=== PATIENT | female | born 1975 | race Caucasian/White ===

== ENCOUNTER → 2017-09-02 09:57 | Outpatient (CLI) | payer OTHER, SELFPAY ==
--- NOTE | 2017-09-02 10:02 | ECHOD_ITS ---
Reason For Study: ARRHYTHMIA Procedure This was a 2D Doppler, Color Flow transthoracic echocardiogram. Exam performed in department. Left Ventricle Normal LV size. Left ventricular systolic function is normal. The estimated ejection fraction is 60 %. Normal diastology for age. No regional wall motion abnormalities noted. Right Ventricle Normal RV size. Normal systolic function. Atria Normal left atrium. Normal right atrium. Mitral Valve Normal mitral valve. Tricuspid Valve Normal tricuspid valve. Mild (1+) tricuspid valve insufficiency. Pulmonary artery systolic pressure is 30 mmHg. Aortic Valve Normal aortic valve. Pulmonic Valve Normal pulmonic valve. Great Vessels Normal aortic root. The pulmonary artery is normal size. Normal inferior vena cava. Pericardium/Pleural No pericardial effusion. MMode/2D Measurements & Calculations LVIDd: 4.5 cm IVSd: 0.79 cm Ao root diam: 2.6 cm LVIDs: 3.1 cm LVPWd: 0.96 cm LA dimension: 3.3 cm RVDd: 2.7 cm FS: 31.5 % LAV(MOD-bp): 41.8 ml LA A4 area: 15.9 cm2 RA A4 area: 14.2 cm2 LAV(MOD-bp) Indexed: 23.4 ml/m2 LAV(MOD-sp2): 32.4 ml LAV(MOD-sp4): 46.0 ml Doppler Measurements & Calculations MV E max sherwin: 114.1 cm/sec Lat Peak E' Sherwin: 10.9 cm/sec Med Peak E' Sherwin: 9.6 cm/sec MV A max sherwin: 72.9 cm/sec E/E' lat: 10.5 E/E' med: 12.0 MV E/A: 1.6 Ao V2 max: 157.1 cm/sec LV V1 max: 132.9 cm/sec PA V2 max: 105.2 cm/sec Ao max P.9 mmHg LV V1 max P.1 mmHg TR max sherwin: 247.4 cm/sec TR max P.6 mmHg Interpretation Summary Normal LV size. Left ventricular systolic function is normal. The estimated ejection fraction is 60 %. Normal tricuspid valve. Mild (1+) tricuspid valve insufficiency. Pulmonary artery systolic pressure is 30 mmHg. Ordering Physician: Ilia Thomas Referring Physician: Shayna Up M.D. Performed By: Marine Hays, [place], RVT
== END ==
PROVIDERS: Family Provider Internal Medicine; PCP Internal Medicine; Visit Provider Internal Medicine Cardiovascular Disease
DX: R00.2 Palpitations (principal)
CPT/HCPCS: 93306

== ENCOUNTER → 2017-10-19 17:45 | Outpatient (CLI) | payer OTHER, SELFPAY ==
[2017-10-24 17:35] LABS: HPV APTIMA, High Risk Negative (Negative)
== END ==
PROVIDERS: Visit Provider Obstetrics & Gynecology
DX: Z12.4 Encounter for screening for malignant neoplasm of cervix (principal)
CPT/HCPCS: 88175; G0145

== ENCOUNTER → 2017-11-17 08:45 | Outpatient (CLI) | payer OTHER, SELFPAY ==
--- NOTE | 2017-11-17 08:50 | BI_ITS ---
MAMMOGRAPHY - BILATERAL SCREENING REASON FOR EXAM: Female, 42 years old. Routine annual screening examination. PERTINENT HISTORY: Aunt with breast cancer. TECHNIQUE: Digital bilateral breast jaimie (3D mammographic acquisition) in the CC and MLO projections. 2-D mediolateral oblique (MLO) and craniocaudad (CC) views of both breasts were obtained. CAD: Full Field Digital Mammography with Computer Added Detection was performed. COMPARISON: Comparison is made with prior outside examination dated September 01, 2016. FINDINGS: Breast Composition: The breasts are extremely dense, which lowers the sensitivity of mammography. There are no dominant masses or suspicious calcifications. No other significant abnormalities are identified. There has been no significant change since the prior study. BI/SCREENING MAMM (CAD), BILAT IMPRESSION: Stable bilateral screening mammogram. Yearly follow-up mammogram recommended. (A) ASSESSMENT CATEGORY: BIRADS Category 1: Negative. A letter regarding these results will be sent to the patient by the facility within 30 days. Approximately 10% of breast cancers are not detected by mammography. A normal mammogram should not delay biopsy of a clinically suspicious abnormality. [id number] Electronically Signed: Suraj Gold MD at 12:38 EDT Tel [phone], Service support ,
== END ==
PROVIDERS: Family Provider Internal Medicine; PCP Internal Medicine; Visit Provider Obstetrics & Gynecology
DX: Z12.31 Encounter for screening mammogram for malignant neoplasm of breast (principal)
CPT/HCPCS: 77063; 77067

== ENCOUNTER → 2018-04-13 09:52 | Outpatient (CLI) | payer OTHER, SELFPAY ==
[2018-04-13 09:49] VITALS: BMI 21.4
--- NOTE | 2018-04-13 09:57 | RAD_ITS ---
STUDY: X-RAY - RIGHT KNEE REASON FOR EXAM: Knee pain. TECHNIQUE: 4 view(s) of the knee. COMPARISON: None. FINDINGS: Normal visualized distal femur. Normal visualized proximal tibia and fibula. Normal proximal tibiofibular articulation. Normal medial femorotibial compartment. Normal lateral femorotibial compartment. Normal patellofemoral articulation. The soft tissue structures are unremarkable. RAD/Knee 4 or More Views IMPRESSION: Normal x-ray examination of the right knee. Electronically Signed: Ash Allison MD at 16:03 EST Tel , Service support ,
--- OUTSIDE RECORDS SUMMARY | 2018-05-30 03:55 | XMS RPT_ITS ---
:1975 Author Organization OHIP Support Name Relationship Address Phone S Unavailable Unavailable Unavailable CHRISTINAHEMALDG Unavailable [address] + [place] [address] S Unavailable Unavailable Unavailable SPRHEMALDG Unavailable [address] + [place] [address] S Unavailable Unavailable Unavailable CHRISTINAHEMALDG Unavailable [address] + [place] [address] S Unavailable Unavailable Unavailable SPRHEMALAJEW Unavailable [address] + [place] [address] S Unavailable Unavailable Unavailable SPRHEMALDG Unavailable [address] + [place] [address] S Unavailable Unavailable Unavailable SPRDG RECIO Unavailable [address] + [place] [address] S Unavailable Unavailable Unavailable CHRISTINAHEMALDG Unavailable [address] + [place] [address] S Unavailable Unavailable Unavailable SPRAJ RECIOEW Unavailable [address] + [place] [address] S Unavailable Unavailable Unavailable STALINDG Unavailable [address] + [place] [address] S Unavailable Unavailable Unavailable SPRHEMALAJEW Unavailable [address] + [place] [address] [employer] Unavailable [address] + [place] [address] DG GANT Unavailable [address] + [place] [address] [employer] Unavailable [address] + [place] [address] DG GANT Unavailable [address] + [place] [address] S Unavailable Unavailable Unavailable DG GANT Unavailable [address] + [place] [address] Care Team Providers Name Role Phone Citlalli Knoxe Attending Unavailable Annel, Shayna Referring Unavailable Chicorelli, Swapna Attending Unavailable Chicorelli, Swapna Referring Unavailable Annel, Shayna Primary Care Unavailable Annel, Shayna Attending Unavailable Annel, Shayna Referring Unavailable Annel, Shayna Primary Care Unavailable Martha, Bradford Attending Unavailable Annel, Shayna Referring Unavailable Annel, Shayna Primary Care Unavailable Chicorelli, Swapna Attending Unavailable Chicorelli, Swapna Referring Unavailable Annel, Shayna Primary Care Unavailable Chicorelli, Swapna Attending Unavailable Annel, Shayna Referring Unavailable Martha, Ilia Attending Unavailable Martha, Ilia Referring Unavailable Annel, Shayna Primary Care Unavailable Martha, Bradford Attending Unavailable Martha, Ilia Attending Unavailable Martha, Bradford Referring Unavailable Marcanthony, Ninoska Attending Unavailable Annel, Shayna Referring Unavailable Annel, Shayna Primary Care Unavailable Marcanthony, Ninoska Attending Unavailable Marcanthony, Ninoska Referring Unavailable Marcanthony, Ninoska Attending Unavailable Annel, Shayna Primary Care Unavailable Bettina Masterson Attending Unavailable PROBLEMS PROBLEMS DATE TYPE CONDITION / CODE ATTENDING STATUS SOURCE 04/13/2018 Unknown M25.562 - Pain in Lisette, Active [place] left knee / [facility] M25.562(ICD-10) Hospital Repository 04/13/2018 Unknown S83.241A - Other Chicorelli, Active [facility] tear of medial [facility] meniscus, current Hospital injury, right knee, Repository initial encounter / S83.241A(ICD-10) 04/13/2018 Unknown S83.281A - Other Chicorelli, Active [place] tear of lateral [facility] meniscus, current Hospital injury, right knee, Repository initial encounter / S83.281A(ICD-10) 04/13/2018 Unknown S83.511A - Sprain of Ivoneorelli, Active [facility] anterior cruciate [facility] ligament of right Hospital knee, initial Repository encounter / S83.511A(ICD-10) 10/20/2017 Unknown Z12.4 - Encounter Marcanthony, Active [facility] for screening for [facility] malignant neoplasm Hospital of cervix / Repository Z12.4(ICD-10) 10/19/2017 Unknown Z12.31 - Encounter Blue Active [facility] for screening [facility] mammogram for Hospital malignant neoplasm Repository of breast / Z12.31(ICD-10) 10/19/2017 Unknown Z11.51 - Encounter Blue Active [facility] for screening for [facility] human papillomavirus Hospital (HPV) / Repository Z11.51(ICD-10) 08/17/2017 Unknown R00.2 - Palpitations Martha, Ilia Active [facility] / R00.2(ICD-10) [facility] Repository PROCEDURES PROCEDURES No Procedure Records FoundRESULTS RESULTS ORTHOPEDIC VISIT Observed: 05/05/2018 Status: F Source: [place] REPORT 10:25 AM [facility] [place] RE[place]IT[place] [facility] Medicine [address] [place] [address] OFFICE VISIT Date of Service: 05/04/18 MR#: [id number] Acct: [id number] Name: KALYN GANT Rep #: [id number] : 1975 Provider: Swapna Knox DO Age/Sex: 42/F [place] [facility] [place] [place]: Signed Intake Vital Signs05/04/18 Body Mass Index (BMI) 21.4 Intake Visit Reasons: RIGHT KNEE Is patient in pain?: Yes Pain scale (1-10): 2 Allergies Sulfa (Sulfonamide Antibiotics) Allergy (Severe, Verified 05/04/18 15:14) Hives, restlessness ampicillin Allergy (Intermediate, Verified 05/04/18 15:14) rash Medications NK 08/16/17 [History Confirmed 08/16/17] levonorgestrel 20 mcg/24 hr (5 years) intrauterine device 1 insert INTRAUTERINE ONCE PRN 10/19/17 [History Confirmed 10/19/17] PFSH Medical History History of gestational diabetes (Chronic) Tachycardia (Acute) Palpitations (Acute) History of paroxysmal supraventricular tachycardia (Chronic) Encounter for IUD insertion (Acute) d AND c 2000 (Acute) Surgical History History of knee surgery (Chronic) Family History Father Cancer of parotid gland Mother Hypertension Grandfather Diabetes Grandmother Alzheimer's dementia Social History Smoking Status: Never smoker HPI RIGHT KNEE: Details: KALYN GANT is a 42 year old F here today for a followup on her right knee. Patient states when she has pain it is over her medial knee and anterior knee. She states that she has increased pain with squatting. She has to modify her activities. Patient denies any locking. She had an MRI which is here for review. ROS Const Reports system reviewed and no additional complaints, except as docu Eyes Reports system reviewed and no additional complaints, except as docu ENT Reports system reviewed and no additional complaints, except as docu Card Reports system reviewed and no additional complaints, except as docu Resp Reports system reviewed and no additional complaints, except as docu GI Reports system reviewed and no additional complaints, except as docu Reports system reviewed and no additional complaints, except as docu Skin/Breast Reports system reviewed and no additional complaints, except as docu Neuro Yes system reviewed and no additional complaints, except as docu Psych Reports system reviewed and no additional complaints, except as docu Endo Reports system reviewed and no additional complaints, except as docu Ortho Exam Right Knee Contralateral Normal: Yes Knee ROM: Yes ROM-Extension -20 to 0, Yes ROM-Flexion 0-140, Yes ROM-Passive Extension -10 to 0, Yes ROM-Passive Flexion 0-140 Examination: Yes Med jt line tenderness, Yes Pain with flexion, Yes Jacqui's Test Stability: NML: Posterior Drawer, NML: Valgus 0, NML: Valgus 30, NML: Varus 0, NML: Varus 30, NML: Dial 90, NML: Dial 30, 1+: Anterior Drawer, 1+: Tatiana Apprehension with Lateral Translation: No Patellar Tilt Normal: Yes Patella Grind: No Assessment AND Plan Problems 1. Medial meniscus tear S83.249A 2. Lateral meniscus tear S83.289A Plan Personally reviewed MRI and reviewed MRI findings with patient. Patient has both a medial meniscus tear and a small lateral meniscus tear and ACL partial tear.. At this point patient has quite amount of atrophy of her right leg and discussed treatment options with patient today injections therapy bracing at [place]. Patient states she feels better should she did a course of physical therapy and was improved last time. Discussed going in and cleaning out the meniscus if it continues to bother her. She is not have any locking symptoms she has not had any injections does not wish to have one today. Discussed other options including bracing. At this point patient states she would prefer to do 6 weeks to 8 weeks of therapy to see if she maximizes that if she is not improved with the therapy she will come in for an injection if after the injection and the therapy she is not better than the next course would be to do a scope to clean out her knee. This was all discussed in great detail with patient. Patient agrees with the above will follow-up in 6-8 weeks if she is not better after therapy for an injection of her knee. All questions answered. Patient in agreement of plan. Coding Level of Care Code Off vis,est,level 4 Diagnoses Medial meniscus tear S83.249A Lateral meniscus tear S83.289A 05/05/18 1025 <Electronically signed by Swapna Knox DO> Date Swapna Knox DO Cosigner Signature: Date (if applicable) CC: LOWER EXT JOINT ONLY Observed: 04/27/2018 Status: F Source: [place] (ROUTINE) 7:30 AM [facility] [place] REPOSITORY [facility] Imaging Services [address] [place] [address] Lower Ext Joint Only (Routine) MR#: [id number] Acct: [id number] Name: KALYN GANT Rep #: [id number] : 1975 F 42 From: Ash Allison MD PCP: Shayna Up DO Status: REG CLI Study: Lower Ext Joint Only (Routine) Date of Exam: 04/27/18 Exam# [id number] Ordering Dr: Swapna Knox DO STUDY: MRI RIGHT KNEE REASON FOR EXAM: Medial knee pain, evaluate for meniscal tear, ACL rupture. TECHNIQUE: Standardized fat and water weighted pulse sequences were obtained in all 3 orthogonal planes. COMPARISON: Radiographs 04/13/2018. FINDINGS: There is a complex tear of the posterior horn of the medial meniscus (proton-density sagittal images 27-31; proton density coronal image 11). Normal hyaline cartilage of the medial femorotibial compartment. Normal medial femoral condyle and tibial plateau. There is thickening of the medial collateral ligament (proton-density coronal image 15) suggestive of scarring. Normal distal semimembranosus, gracilis and semitendinosus tendons. There may be a very small vertical tear of the posterior horn of the lateral meniscus near the free margin (proton-density sagittal image 13). Normal hyaline cartilage of the lateral femorotibial compartment. Normal lateral femoral condyle and tibial plateau. Normal proximal tibiofibular articulation. Normal lateral collateral (fibular) ligament. Normal popliteus tendon. Normal biceps femoris tendon. There is attenuation of the anterior cruciate ligament (T2 sagittal image 12; series 7 image 11) suggestive of chronic partial tear. Normal posterior cruciate ligament (PCL). Normal congruent patellofemoral articulation. Normal hyaline cartilage of the patellofemoral compartment. Normal medial and lateral patellar retinaculum. Normal visualized quadriceps tendon. Normal patellar tendon. Normal Hoffa's fat pad. There is a very small joint effusion. The soft tissues are unremarkable. The otherwise visualized osseous structures are unremarkable. MRI/Lower Ext Joint Only (Routine) IMPRESSION: Medial meniscal tear. Attenuation of the anterior cruciate ligament suggestive of chronic partial tear. There may be a very small lateral meniscal tear, identified only on a single slice. Scarring of the medial collateral ligament. Very small joint effusion. Electronically Signed: Ash Allison MD at 14:31 EST Tel , Service support , CC: Swapna Knox DO; Shayna Up DO Scientist/Engineer: Signed ORTHOPEDIC VISIT Observed: 04/13/2018 Status: F Source: [place] [facility] Medicine [address] [place] [address] OFFICE VISIT Date of Service: 04/13/18 MR#: [id number] Acct: [id number] Name: KALYN GANT Rep #: [id number] : 1975 Provider: Swapna Knox DO Age/Sex: 42/F [place] [facility] [place]: Signed Intake Vital Signs04/13/18 Height 5 ft 7 in 04/13/18 Weight: 137 lb 04/13/18 Body Mass Index (BMI) 21.4 Intake Visit Reasons: RIGHT KNEE Is patient in pain?: Yes Pain scale (1-10): 3 Allergies Sulfa (Sulfonamide Antibiotics) Allergy (Severe, Verified 04/13/18 09:47) Hives, restlessness ampicillin Allergy (Intermediate, Verified 04/13/18 09:47) rash Medications NK 08/16/17 [History Confirmed 08/16/17] levonorgestrel 20 mcg/24 hr (5 years) intrauterine device 1 insert INTRAUTERINE ONCE PRN 10/19/17 [History Confirmed 10/19/17] PFSH Medical History History of gestational diabetes (Chronic) Tachycardia (Acute) Palpitations (Acute) History of paroxysmal supraventricular tachycardia (Chronic) Encounter for IUD insertion (Acute) d AND c 2000 (Acute) Surgical History History of knee surgery (Chronic) Family History Father Cancer of parotid gland Mother Hypertension Grandfather Diabetes Grandmother Alzheimer's dementia Social History Smoking Status: Never smoker HPI RIGHT KNEE: Details: KALYN GATN is a 42 year old F here today for right knee pain. Patient notes that she has had knee pain for about 6 weeks. She states that she tore her meniscus and ACL about 3 years ago. Patient notes that she did not want surgery but did physical therapy which was helpful. She states that she has a knee brace that she wears with activities. She recently started doing fitness classes and believes she reinjured her knee then. She noticed swelling at that time. She has increased pain with ambulating stairs and squats. She has been icing which is helpful. Patient notes that she has popping and clicking. Her pain is over her medial knee and under her patella. Patient feels like she is favoring her knee. Patients knee hyperextends. She denies any locking or instability. Patient denies any injections, xrays or MRI. ROS Const Reports system reviewed and no additional complaints, except as docu Eyes Reports system reviewed and no additional complaints, except as docu ENT Reports system reviewed and no additional complaints, except as docu Card Reports system reviewed and no additional complaints, except as docu Resp Reports system reviewed and no additional complaints, except as docu GI Reports system reviewed and no additional complaints, except as docu Reports system reviewed and no additional complaints, except as docu Musc Reports joint pain, Reports joint swelling Skin/Breast Reports system reviewed and no additional complaints, except as docu Neuro Yes system reviewed and no additional complaints, except as docu Psych Reports system reviewed and no additional complaints, except as docu Endo Reports system reviewed and no additional complaints, except as docu Ortho Exam Right Knee Skin/Wound: Yes CDI Contralateral Normal: Yes Swelling: No Homans Sign: No Knee ROM: Yes ROM-Extension -20 to 0, Yes ROM-Flexion 0-140 Examination: Yes Pain with flexion, Yes Jacqui's Test, Yes Med jt line tenderness, Yes Lat jt line tenderness Quad Atrophy: Yes Stability: NML: Posterior Drawer, NML: Valgus 0, NML: Varus 0, NML: Dial 90, NML: Dial 30, 2+: Anterior Drawer (soft end feel) Apprehension with Lateral Translation: No Patellar Tilt Normal: Yes Patella Grind: Yes Assessment AND Plan 1. 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 X-rays were reviewed. There is no obvious fracture, dislocation, or lucency noted. Reviewed her past MRI with an ACL and med and lat meniscus tears. Educated on the anatomy of the knee and etiology of her pain. She has signs of instability and pos McMurrays on exam today. Explained that she has scarred in some since the injury because she has a soft end feel with drawer today. Her treatment options today are do nothing, PT, HEP and oral otc nsaids injections and repeat MRI. Gave PT script today and she can follow from MRI and discuss best option between injection or scope after MRI. She can do all desired activities and use pain as her guide. Follow up after MRI or sooner if pain, swelling, numbness or associated symptoms, or concerns develop. All questions answered. Patient in agreement of plan. Orders Orders: 2. Tear of medial meniscus of right knee, current, unspecified tear type, initial encounter S83.241A Orders Orders: 3. 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 Tear of medial meniscus of right knee, current, unspecified tear type, initial encounter S83.241A Encounter type: initial encounter Meniscus tear of knee type: unspecified type Tear current or old: current Tear of lateral meniscus of right knee, current, unspecified tear type, initial encounter S83.281A Encounter type: initial encounter Meniscus tear of knee type: unspecified type Tear current or old: current 04/13/18 1043 <Electronically signed by Swapna Knox DO> Date Swapna Knox DO Cosigner Signature: Date (if applicable) CC: KNEE 4 OR MORE Observed: 04/13/2018 Status: F Source: [place] 9:57 AM [facility] [place] REPOSITORY [facility] Imaging Services [address] [place] [address] Knee 4 or More Views MR#: [id number] Acct: [id number] Name: KALYN GANT Rep #: [id number] : 1975 F 42 From: Ash Allison MD PCP: Shayna Up DO Status: REG CLI Study: Knee 4 or More Views Date of Exam: 04/13/18 Exam# [id number] Ordering Dr: Swapna Knox DO STUDY: X-RAY - RIGHT KNEE REASON FOR EXAM: Knee pain. TECHNIQUE: 4 view(s) of the knee. COMPARISON: None. FINDINGS: Normal visualized distal femur. Normal visualized proximal tibia and fibula. Normal proximal tibiofibular articulation. Normal medial femorotibial compartment. Normal lateral femorotibial compartment. Normal patellofemoral articulation. The soft tissue structures are unremarkable. RAD/Knee 4 or More Views IMPRESSION: Normal x-ray examination of the right knee. Electronically Signed: Ash Allison MD at 16:03 EST Tel , Service support , CC: Swapna Knox DO; Shayna Up DO Scientist/Engineer: Signed SCREENING MAMM (CAD), Observed: 11/17/2017 Status: F Source: [facility] 8:51 AM [facility] [place] REPOSITORY [facility] Imaging Services [address] [place] [address] SCREENING MAMM (CAD), BIL MR#: [id number] Acct: [id number] Name: KALYN GANT Rep #: [id number] : 1975 F 42 From: Suraj Gold MD PCP: Shayna Up DO Status: REG CL Study: SCREENING MAMM (CAD), BILAT Date of Exam: 11/17/17 Exam# [id number] Ordering Dr: Ninoska Mcarthur MD MAMMOGRAPHY - BILATERAL SCREENING REASON FOR EXAM: Female, 42 years old. Routine annual screening examination. PERTINENT HISTORY: Aunt with breast cancer. TECHNIQUE: Digital bilateral breast jaimie (3D mammographic acquisition) in the CC and MLO projections. 2-D mediolateral oblique (MLO) and craniocaudad (CC) views of both breasts were obtained. CAD: Full Field Digital Mammography with Computer Added Detection was performed. COMPARISON: Comparison is made with prior outside examination dated September 01, 2016. FINDINGS: Breast Composition: The breasts are extremely dense, which lowers the sensitivity of mammography. There are no dominant masses or suspicious calcifications. No other significant abnormalities are identified. There has been no significant change since the prior study. BI/SCREENING MAMM (CAD), BILAT IMPRESSION: Stable bilateral screening mammogram. Yearly follow-up mammogram recommended. (A) ASSESSMENT CATEGORY: BIRADS Category 1: Negative. A letter regarding these results will be sent to the patient by the facility within 30 days. Approximately 10% of breast cancers are not detected by mammography. A normal mammogram should not delay biopsy of a clinically suspicious abnormality. 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 MACHINE TENDER OFFICE VISIT Observed: 10/25/2017 Status: F Source: [place] REPORT 7:23 AM [facility] [place] [place] [address] [place] [address] OFFICE VISIT Date of Service: 10/19/17 MR#: [id number] Acct: [id number] Name: KALYN GANT Rep #: [id number] : 1975 Provider: Ninoska Mcarthur MD Age/Sex: 42/F [place] [facility] [place] Signed Intake Vital Signs10/19/17 Height 5 ft 7 in 10/19/17 Weight: 153 lb 8 oz 10/19/17 Body Mass Index (BMI) 24.0 10/19/17 Blood Pressure 124/76 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 Is patient in pain?: No Allergies Sulfa (Sulfonamide Antibiotics) Allergy (Severe, Verified 10/19/17 14:47) Hives, restlessness ampicillin Allergy (Intermediate, Verified 10/19/17 14:47) rash Medications NK [NK] 08/16/17 [History Confirmed 08/16/17] levonorgestrel 20 mcg/24 hr (5 years) intrauterine device 1 insert INTRAUTERINE ONCE PRN 10/19/17 [History Confirmed 10/19/17] Is last menstrual period known: No PFSH Medical History History of gestational diabetes (Chronic) Tachycardia (Acute) Palpitations (Acute) History of paroxysmal supraventricular tachycardia (Chronic) d AND c 2000 (Acute) Surgical History History of knee surgery (Chronic) Family History Father Cancer of parotid gland Mother Hypertension Social History Smoking Status: Never smoker Pregancy History 4 Elective abortions Hx Para 3 Spontaneous abortions 1 Past Pregnancies Del. DateName GA/Weeks Outcome Route Bth WeighInfant GeLabor LgtAnesthesiDel LocatProvider FOB t n h a n HPI Encounter for routine gynecological examination: Details: KALYN GANT is a 42 year old who presents for annual exam. Last PAP: unsure History of abnormal PAP: none Last mammogram: due Female Reproductive History Cycle Length: >35 Control Method: mirena Questions: Sexually active: Yes, Dyspareunia: No, PCB: No Menopausal Symptoms: No hot flashes, No night sweats, No weight change, No mood changes, No difficulty concentrating, No sleep problems, No change in libido ROS Const Constitutional: Reports as per HPI; denies poor appetite, fatigue, increased appetite, weight gain, weight loss or night sweats Cardio Card: Denies chest pain Resp Resp: Denies dyspnea or cough GI GI: Reports as per HPI; denies bloating, abdominal pain, constipation, vomiting or nausea : Reports as per HPI and other; denies blood in urine, vaginal odor, vaginal itching, vaginal dryness, vaginal discharge, urinary urgency, urinary incontinence, urinary frequency, pelvic pain, painful urination, difficulty urinating, prolapse symptoms, nipple discharge or hot flashes Skin Skin/Breast: Denies breast pain, breast skin changes, nipple discharge, breast lump or changing lesions Psych Psych: Denies difficulty concentrating or change in sex drive Exam Const General: cooperative, healthy appearing, comfortable, no acute distress, well developed, well groomed [facility] Head: normal to inspection, normocephalic Ears: hearing grossly normal bilaterally, external ears normal Nose: external nose normal Face and sinus: normal facial exam Neck Neck: normal visual inspection, full ROM, no lymphadenopathy Thyroid: thyroid normal Chest Chest palpation AND inspection: normal inspection of the chest Breast inspection: normal inspection of the breasts, normal inspection of the axillae Breast palpation: normal palpation of the breasts, normal palpation of the axillae, no axillary lymphadenopathy Resp Effort AND Inspection: normal respiratory effort GI Inspection: normal to inspection, non-distended Palpation: no guarding, soft, no hepatosplenomegaly General: bladder normal to palpation External Female Exam: normal external appearance, normal appearance of the urethra, no lesions Urethra: normal appearance of the urethra, normal palpation Speculum Exam - Vagina: normal appearance of the vagina, normal vaginal discharge Speculum Exam - Cervix: normal appearance of the cervix, no cervical discharge, no lesions, nontender Bimanual Exam- Vagina AND Uterus: No cervical tenderness, normal bimanual exam, uterine size normal, bladder normal to palpation, uterine mobility normal, uterine consistency normal, uterus non-tender, no cervical motion tenderness Bimanual Exam- Adnexa, other: normal adnexae, no adnexal masses, adnexae non-tender Skin General: no rashes or lesions noted Neuro General: alert, moves all extremities, no focal motor deficits Extrem General: no pedal edema, normal to inspection Psych Appearance: grossly normal Mental Status: mental status grossly normal Affect: normal affect Speech and Movement: speech and movement normal Attitude: cooperative Assessment AND Plan Problems 1. Encounter for gynecological examination without abnormal finding Z01.419 2. Screening for cervical cancer Z12.4 3. Screening for HPV (human papillomavirus) Z11.51 4. Encounter for screening mammogram for malignant neoplasm of breast Z12.31 Plan Cervical cancer screening: pap hpv Breast cancer screening: mamm other health maintenance examination reviewed and up to date. Encouraged maintenance of a healthy weight and active lifestyle and handout given. Calcium/vitamin D recommendations provided. Annual exam handout including recommendations for good health guidelines and basic screening information given. Problem list up to date, see problem list details for any additional plan information. Follow up in one year for annual health maintenance exam or sooner if needed. Orders Orders: Coding Level of Care Code Off vis,new,prev 40-64yrs Diagnoses Encounter for gynecological examination without abnormal finding Z01.419 Gynecological examination findings: abnormal findings ABSENT Screening for cervical cancer Z12.4 Screening for HPV (human papillomavirus) Z11.51 Encounter for screening mammogram for malignant neoplasm of breast Z12.31 10/25/17 0723 <Electronically signed by Ninoska Mcarthur MD> Date Ninoska Mcarthur MD Cosigner Signature: Date (if applicable) CC: PAP IG HPV APTIMA Collected: 10/19/2017 Status: F Source: [place] ,45 2:20 PM [facility] [place] REPOSITORY Order Comment: CYTOLOGY INFORMATION: - CLINICAL INFORMATION: HYSTERECTOMY - DATE LMP/MENOPAUSE: LMP - COLLECTION VIAL: Thin Prep Vial - DECAL TRANSFERRER SOURCE: CERVICAL - COLLECTION TECHNIQUE: CX BROOM ONLY Specimen Comment: [id number] Specimen Comment: No. of containers..01 ThinPrep Vial TYPE CODE TESTS RESULT OUT OF RANGE REFERENCE UNITS LAB L7400.0800 . Normal DIAGN Comment Result Comment: NEGATIVE FOR INTRAEPITHELIAL LESION AND MALIGNANCY. CELLULAR CHANGES ASSOCIATED WITH INFLAMMATION ARE PRESENT. LAB L7400.0900 . Normal ADEQ Comment Result Comment: Satisfactory for evaluation. No endocervical cells are present. This is consistent with a history of hysterectomy. LAB L7400.1400 . Normal PERFORM Comment Result Comment: Margie Agee, [employer] (ASCP) LAB L7400.2575 . Normal TEST METHOD Comment Result Comment: This liquid based ThinPrep(R) pap test was screened with the use of an image guided system. LAB L7400.2600 . Normal . COMM LAB L7400.2700 . Normal PAPSMR Comment Result Comment: The Pap smear is a screening test designed to aid in the detection of premalignant and malignant conditions of the uterine cervix. It is not a diagnostic procedure and should not be used as the sole means of detecting cervical cancer. Both false-positive and false-negative reports do occur. LAB L7400.2760 Negative Normal HPV APTIMA, Negative HR Result Comment: This test detects fourteen high-risk HPV types (16/18/31/33/35/39/45/ 51/52/56/58/59/66/68) without differentiation. Performed at: [facility] - [facility] [id number] [employer] Fe[employer]: Wanda Navarrete MD, Phone: [phone] Performed at: =[facility] - [facility] [address] [id number] [employer]: Wanda Navarrete MD, Phone: [phone] Performed By: #### L7400.0280 #### [facility] (refer to report for specific site) refer to report for address and phone number ECHOCARDIOGRAM COMPLETE Observed: 09/02/2017 Status: F Source: [place] 1:36 PM [facility] [place] REPOSITORY [facility] Cardiovascular Services [address] [place] [address] Echo Complete 09/02/17 1002 MR#: [id number] Acct: [id number] Name: KALYN GANT Rep #: [id number] : 1975 42 From: Ilia Thomas MD Attending Dr: Ilia Thomas MD Status: REG CLI Ordering Dr: Ilia Thomas MD Date: 09/02/17 Location: [facility] Sex: F C Admitted: Reason For Study: ARRHYTHMIA Procedure This was a 2D Doppler, Color Flow transthoracic echocardiogram. Exam performed in department. Left Ventricle Normal LV size. Left ventricular systolic function is normal. The estimated ejection fraction is 60 %. Normal diastology for age. No regional wall motion abnormalities noted. Right Ventricle Normal RV size. Normal systolic function. Atria Normal left atrium. Normal right atrium. Mitral Valve Normal mitral valve. Tricuspid Valve Normal tricuspid valve. Mild (1+) tricuspid valve insufficiency. Pulmonary artery systolic pressure is 30 mmHg. Aortic Valve Normal aortic valve. Pulmonic Valve Normal pulmonic valve. Great Vessels Normal aortic root. The pulmonary artery is normal size. Normal inferior vena cava. Pericardium/Pleural No pericardial effusion. MMode/2D Measurements AND Calculations LVIDd: 4.5 cm IVSd: 0.79 cm Ao root diam: 2.6 cm LVIDs: 3.1 cm LVPWd: 0.96 cm LA dimension: 3.3 cm RVDd: 2.7 cm FS: 31.5 % LAV(MOD-bp): 41.8 ml LA A4 area: 15.9 cm2 RA A4 area: 14.2 cm2 LAV(MOD-bp) Indexed: 23.4 ml/m2 LAV(MOD-sp2): 32.4 ml LAV(MOD-sp4): 46.0 ml Doppler Measurements AND Calculations MV E max sherwin: 114.1 cm/sec Lat Peak E' Sherwin: 10.9 cm/sec Med Peak E' Sherwin: 9.6 cm/sec MV A max sherwin: 72.9 cm/sec E/E' lat: 10.5 E/E' med: 12.0 MV E/A: 1.6 Ao V2 max: 157.1 cm/sec LV V1 max: 132.9 cm/sec PA V2 max: 105.2 cm/sec Ao max P.9 mmHg LV V1 max P.1 mmHg TR max sherwin: 247.4 cm/sec TR max P.6 mmHg Interpretation Summary Normal LV size. Left ventricular systolic function is normal. The estimated ejection fraction is 60 %. Normal tricuspid valve. Mild (1+) tricuspid valve insufficiency. Pulmonary artery systolic pressure is 30 mmHg. Ordering Physician: Ilia Thomas Referring Physician: Shayna Up M.D. Performed By: Marine Hays, CLIFTON, RVT 09/02/17 1335 Date Ilia Thomas MD CC: Ilia Thomas MD; hSayna Up DO Date Dictated: 09/02/17 1002 Date Transcribed: 09/02/17 1335 Scientist/Engineer: Signed CARDIOLOGY VISIT Observed: 08/17/2017 Status: F Source: [place] REPORT 11:23 AM [facility] [place] REPOSITORY [facility] [address] [place] [address]. [address] [place] [address] OFFICE VISIT Date of Service: 08/17/17 MR#: [id number] Acct: [id number] Name: KALYN GANT Rep #: [id number] : 1975 Provider: Ilia Thmoas MD Age/Sex: 42/F Location: [facility] [place] Status: Signed HPI HPI Chief Complaint: Palpitations. Details: KALYN GANT, is a 42 F who presents to the office today for an initial visit for palpitations. She had previously been seen by me almost 10 years ago with palpitations. She had also been seen in 2006 for presumed supraventricular tachyarrhythmias which occurred during her Holter monitor performed did not demonstrate any evidence of arrhythmias and echocardiogram performed demonstrated preserved ejection fraction with trivial mitral aortic and tricuspid regurgitation. She also had a stress echocardiogram where she exercised to 11.7 metabolic equivalents without any evidence of ischemia. She also had a CT scan of her chest and November 2008 which did not demonstrate any abnormality repeat CT scan in 2009 also did not demonstrate any abnormality. She had done well since then had not been on any medication. She says that more recently she has started having these palpitations again which she says feels like her heartbeat super fast for a few seconds and then goes away. She has not had any chest pain or shortness breath or paroxysmal nocturnal dyspnea pedal edema she has not had any near syncope or syncope. She says that she has had some blood work performed through your office. Her physical exam demonstrates clear lung oreilly regular rate and rhythm and no pedal edema. Intake Vital Signs08/17/17 Height 5 ft 7 in 08/17/17 Weight: 149 lb 08/17/17 Body Mass Index (BMI) 23.3 08/17/17 Blood Pressure 122/80 Intake Visit Reasons: PCP ref'd (30 day monitor placed 3-28) Is patient in pain?: No Allergies Sulfa (Sulfonamide Antibiotics) Allergy (Severe, Verified 08/17/17 11:06) Hives, restlessness ampicillin Allergy (Intermediate, Verified 08/17/17 11:06) rash Medications NK [NK] 08/16/17 [History Confirmed 08/16/17] Ejection fraction %: 60 to 64 PFSH Medical History History of gestational diabetes (Chronic) Tachycardia (Acute) Palpitations (Acute) History of paroxysmal supraventricular tachycardia (Chronic) Surgical History History of knee surgery (Chronic) Family History Father Cancer of parotid gland Mother Hypertension Social History Smoking Status: Never smoker ROS Const Const: Positive for other (Wearing a 30 day event monitor for palps); negative for fatigue, weakness, body ache, fever(s), headache(s), chills, frequent falls, night sweats, daytime sleepiness, difficulty sleeping, excessive sweating, weight gain, weight loss, increased appetite, poor appetite or anorexia Eyes Eyes: Negative for blind spots, loss of peripheral vision, transient loss of vision, blurry vision, change in vision, double vision, floaters, tunnel vision or other ENT ENT: Negative for headache(s), dizziness, hearing loss, tinnitus, Nosebleed/epistaxis, balance problems, post nasal drip, lip swelling, tongue swelling, bleeding gums, hoarseness, neck pain, dry mouth or other Cardio Chest Pain: No Palpitations: Yes (had no palps since 2009 then started up again. ) feels like its: fast Edema: None Resp Respiratory: Negative for SOB with activity, SOB at rest, SOB orthopnea\SOB lying down, Coughing up blood/hemoptysis, chest congestion, pain on inspiration, snoring, stridor, wheezing, crackles, paroxysmal nocturnal dyspnea or other GI GI: Negative nausea, vomiting, heartburn, constipation, belching, bloating, cramping, vomiting blood/hematemesis, bright, red blood in stools, black,tarry stools, loose stools, Difficulty Swallowing or other : Negative for hematuria, frequent nighttime urination/ nocturia, erectile dysfunction or abnormal vaginal bleeding Musc Musc: Negative for balance problems, muscle aches/ myalgia, muscle weakness or joint pain Skin Skin: Negative redness, non-healing lesions, rash, unusual bruising, skin ulcer, wounds, jaundice or other Neuro Neuro: Negative for weakness, headache(s), frequent falls, blurry vision, double vision, dizziness, lightheadedness, near syncope, syncope, orthostatic symptoms, confusion, memory loss, restless legs, vertigo, seizures, lack of coordination or other Jai Hematologic/Lymphatic: Negative for easy bleeding, easy bruising, enlarged lymph nodes or other Endo Endo: Negative for fatigue, excessive sweating, cold intolerance, heat intolerance, flushing, increased thirst/drinking, increased hunger, hair loss, hair growth or other Psych Psych: Negative for anxiety, depression, thoughts of harming anyone, thoughts of harming yourself, visual hallucinations, panic attacks or audible hallucinations Allergy Allergy/Immunology: Negative for lip swelling, Negative for tongue swelling, Negative for rash, Negative for throat swelling, Negative for hives Cardiology Exam Const Appearance: cooperative, healthy appearing, well developed, well groomed and no acute distress Nutritional Appearance: well nourished and average body habitus Orientation: alert, awake and oriented x3 Head Head: normal to inspection, normocephalic and atraumatic Ears: hearing grossly normal bilaterally and external ears normal Nose: external nose normal, nasal mucous membranes and turbinates normal, nares normal, septum normal, no nasal discharge Face and Sinus: face symmetric Mouth: oral mucosae normal, tongue normal, oropharynx normal and moist mucous membranes Teeth and gingiva: dentition normal Throat: posterior oropharynx normal, tonsils normal and uvula midline Eyes General: appearance normal, both eyes and all related structures Eyelids: eyelids normal Conjunctivae: conjunctivae normal Pupils: PERRL, normal by confrontation and accommodation normal EOM: EOM intact bilaterally Neck Neck: normal visual inspection, trachea midline and no JVD JVD: +5 Carotids: normal carotid upstroke and bounding pulses Chest Chest inspection: normal inspection of the chest, symmetric chest movement and normal respiratory effort Auscultation: Bilateral: Clear to Auscultation Cardio Palpation: normal PMI Rate: regular rate Rhythm: regular rhythm Heart sounds: S1 normal, S2 normal and normal, physiologic split S2; negative rub, gallop or murmur GI GI: normal to inspection, soft, no hepatosplenomegaly and bowel sounds present Neuro General: alert, awake, oriented x3, no focal sensory deficit, gait normal and moves all extremities Skin Skin: no rashes or lesions noted Extremities Pulses: Normal: Right Femoral Pulse, Left Femoral Pulse, Right Dorsalis Pedis Pulse, Left Dorsalis Pedis Pulse, Right Posterior Tibial Pulse, Left Posterior Tibial Pulse, Right Radial Pulse, Left Radial Pulse Lower Extremity Edema: None: Bilateral Musculoskel Musculoskeletal: No joint tenderness Psych Psychological: normal affect Assessment AND Plan 1. Palpitations R00.2 Plan She does have a history of recurrent palpitations but says that she does not currently consume a significant amount of caffeinated beverages. She would prefer that we have an echocardiogram to assess her left ventricular function she currently has an event monitor in place and my recommendation is to continue the event monitor and I will be willing to continue it for another month to see whether we can characterize this further. Depending on the results further recommendations will be made. Thank you for allowing me to participate in her care. 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 on result) Coding Level of Care Code Off vis,new,level 3 Diagnoses Palpitations R00.2 Coding Level of Care Code Off vis,new,level 3 Diagnoses Palpitations R00.2 08/17/17 1123 <Electronically signed by Ilia Thomas MD> Date Ilia Thomas MD Cosigner Signature: Date (if applicable) CC: Shayna Up DO ALLERGIES ALLERGIES DATE TYPE / CODE NAME / CODE REACTION SEVERITY SOURCE 05/04/2018 Drug Sulfa Hives, restlessness [place] Allergy/416 (Sulf[facility]amide [facility] 759589[facility] Repository ED CT) /[id number]( RXNORM) 05/04/2018 Drug ampicillin/F Rash [place] [facility] Allergy/416 [id number](RX Hospital 438988(SN NORM) Repository ED CT) ENCOUNTERS ENCOUNTERS ADMIT/DISCHARGE ACCOUNT ADMITTING ENCOUNTER LOCATION SOURCE NUMBER CLASS 05/04/2018/ [id number] Ambulatory BMSBuilding:B [place] 9 1 [facility] Repository 04/27/2018 [id number] Ambulatory [place] 4 [facility] ing:MRI Repository 04/13/2018 [id number] Ambulatory [place] 3 [facility] ing:HPRAD Repository 04/13/2018/ [id number] Ambulatory BMSBuilding:B [place] 8 3 [facility] Repository 11/25/2017 [id number] Ambulatory BMSBuilding:B [place] 2 [facility] Repository 11/17/2017 [id number] Ambulatory [place] 7 [facility] ing:OPBI Repository 10/19/2017 [id number] Ambulatory [place] 3 [facility] ing:[facility] Repository 10/19/2017/ [id number] Ambulatory BMSBuilding:B [place] 8 2 [facility] Repository 09/02/2017 [id number] Ambulatory [place] 8 [facility] ing:[facility] Repository 09/02/2017 [id number] Ambulatory BMSBuilding:W [place] 4 [facility] Repository 08/17/2017/ [id number] [facility] [place] [facility] 07/27/2017 [id number] Ambulatory [place] 4 [facility] ing:[facility] Repository 07/27/2017 [id number] Ambulatory BMSBuilding:W [place] 1 [facility] Repository PAYERS PAYERS ENCOUNTER GUARANTOR PAYER SUBSCRIBER SOURCE 05/04/2018 KALYN R Primary DG [place] [id number] TR Insurance:[employer] HL[employer] SPRANGDOB: [address] [address]Czj: Number: Repository [id number] (HP) Date:5816-95-57KJ [address], [place] [address]LZ: 05/04/2018 Secondary NOT GIVENUNK [place] Insurance:SELF PAY [facility] Number: Effective Repository Date:2018-05-03 04/27/2018 KALYN R Primary DG [place] [id number] TR Insurance:[employer] HL[employer] SPRANGDOB: [address] [place] [address]Omf: Number: Repository [id number] (HP) Date:2277-58-52PG [address]HX, [place] [address]OK: 04/27/2018 Secondary NOT GIVENUNK [place] Insurance:SELF PAY [facility] Number: Effective Repository Date:2018-04-13 04/13/2018 KALYN R Primary Dg Stanley [id number] TR Insurance:[employer] HL[employer] SprangDOB: [address] [place] [address]Fsd: Number: Repository [id number] (HP) Date:3279-95-67AB [address]FTY[place], [place] [address]EZ: 04/13/2018 Secondary NOT GIVENUNK [place] Insurance:SELF PAY [facility] Number: Effective Repository Date:2018-04-13 04/13/2018 KALYN R Primary Dg Stanley [id number] TR [facility] SprangD[facility]: [place] [id number] [place], [place] [address] [place] [address]Vvt: Number: Repository [id number] (HP) Date:0205-20-50EW [facility] [address]WSZDQPT, [place] [address]YV: 04/13/2018 Secondary NOT GIVENUNK [place] Insurance:SELF PAY [facility] Number: Effective Repository Date:2018-04-12 11/25/2017 KALYN R Primary Dg W [place] [id number] TR Insurance:UNITED TH SprangDOB: [place] [id number] [place], [place] [address] [place] [address]Csz: Number: Repository [id number] (HP) Date:1839-20-24BG [facility]340864QDNGBPW, [place] [address]ZE: 11/25/2017 Secondary NOT GIVENUNK [place] Insurance:SELF PAY [facility] Number: Effective Repository Date:2017-11-25 11/17/2017 KALYN R Primary Dg W [place] [id number] TR Insurance:UNITED TH SprangDOB: [address] [address] [place], [place] [address] [place] [address]Izh: Number: Repository [id number] (HP) Date:9499-02-85EP [address]AVWSW[place], [place] [address]IX: 11/17/2017 Secondary NOT GIVENUNK [place] Insurance:SELF PAY [facility] Number: Effective Repository Date:2017-10-24 10/19/2017 KALYN R Primary Dg W [place] [id number] TR Insurance:[employer] SprangDOB: [place] [id number] [place], [place] [id number] [address]Hzq: Number: Repository [id number] (HP) Date:8687-94-76JW [facility] [id number] [place] [address]YX: 10/19/2017 Secondary NOT GIVENUNK [place] Insurance:SELF PAY [facility] Number: Effective Repository Date:2017-10-19 10/19/2017 KALYN R Primary Dg Veliz [place] [id number] TR [facility] SprangDOB: [address] [address]Exn: Number: Repository [id number] (HP) Date:2175-85-50HC [facility] [id number] [place] [address]BR: 10/19/2017 Secondary NOT GIVENUNK [place] Insurance:SELF PAY [facility] Number: Effective Repository Date:2017-10-19 09/02/2017 KALYN R Primary Dg Sureshoster [id number] TR Insurance:[employer] SprangDOB: [place] [id number] [place], [place] [id number] [address]Fff: Number: Repository [phone] [id number] 0-4 (HP) Date:5964-66-79JB [facility] [address]82[address]PMVPUEP, [place] [address]YL: 09/02/2017 Secondary NOT GIVENUNK [place] Insurance:SELF PAY [facility] Number: Effective Repository Date:2017-08-17 09/02/2017 KALYN R Primary Dg Sureshoster [id number] TR Insurance:[employer] SprangDOB: [place] [id number] [place], [place] [id number] [address]Iax: Number: Repository [phone] [id number] 0-4 (HP) Date:8461-17-88PY [address]RITJHTK, [place] [address]YV: 09/02/2017 Secondary NOT GIVENUNK [place] Insurance:SELF PAY [facility] Number: Effective Repository Date:2017-09-02 08/17/2017 Dg W Primary Dg W [place] [id number] [facility] [id number], Number: Repository [place] [address]Oow: [id number] Date:0277-61-43JR [address] () [address], [place] [address]LS: . 08/17/2017 Secondary NOT GIVENUNK [place] Insurance:SELF PAY [facility] Number: Effective Repository Date:2017-07-27 07/27/2017 Dg W Primary Insurance:SELF NOT GIVENUNK [place] [id number] PAY [facility] Number: Effective [address], Date:2017-07-21 Repository [place] [phone]: (HP) 07/27/2017 KALYN Lundberg Primary Dg Veliz [place] [id number] TR [facility] [address] [address]Nzx[id number] [place] [address]Wkm: Number: Repository [phone] [id number] 0-4 (HP) Date:1138-20-01FL [address]UPSOFXM, [place] [address]TL: 07/27/2017 Secondary NOT GIVENUNK [place] Insurance:SELF PAY [facility] Number: Effective Repository Date:2017-07-27
== END ==
PROVIDERS: Family Provider Internal Medicine; PCP Internal Medicine; Referring Provider Orthopaedic Surgery; Visit Provider Orthopaedic Surgery
DX: M25.562 Pain in left knee (principal)
CPT/HCPCS: 73564

== ENCOUNTER → 2018-04-27 07:28 | Outpatient (CLI) | payer OTHER, SELFPAY ==
[2018-04-13 09:49] VITALS: BMI 21.4
--- NOTE | 2018-04-27 07:30 | MRI_ITS ---
STUDY: MRI RIGHT KNEE REASON FOR EXAM: Medial knee pain, evaluate for meniscal tear, ACL rupture. TECHNIQUE: Standardized fat and water weighted pulse sequences were obtained in all 3 orthogonal planes. COMPARISON: Radiographs 04/13/2018. FINDINGS: There is a complex tear of the posterior horn of the medial meniscus (proton-density sagittal images 27-31; proton density coronal image 11). Normal hyaline cartilage of the medial femorotibial compartment. Normal medial femoral condyle and tibial plateau. There is thickening of the medial collateral ligament (proton-density coronal image 15) suggestive of scarring. Normal distal semimembranosus, gracilis and semitendinosus tendons. There may be a very small vertical tear of the posterior horn of the lateral meniscus near the free margin (proton-density sagittal image 13). Normal hyaline cartilage of the lateral femorotibial compartment. Normal lateral femoral condyle and tibial plateau. Normal proximal tibiofibular articulation. Normal lateral collateral (fibular) ligament. Normal popliteus tendon. Normal biceps femoris tendon. There is attenuation of the anterior cruciate ligament (T2 sagittal image 12; series 7 image 11) suggestive of chronic partial tear. Normal posterior cruciate ligament (PCL). Normal congruent patellofemoral articulation. Normal hyaline cartilage of the patellofemoral compartment. Normal medial and lateral patellar retinaculum. Normal visualized quadriceps tendon. Normal patellar tendon. Normal Hoffa's fat pad. There is a very small joint effusion. The soft tissues are unremarkable. The otherwise visualized osseous structures are unremarkable. MRI/Lower Ext Joint Only (Routine) IMPRESSION: Medial meniscal tear. Attenuation of the anterior cruciate ligament suggestive of chronic partial tear. There may be a very small lateral meniscal tear, identified only on a single slice. Scarring of the medial collateral ligament. Very small joint effusion. Electronically Signed: Ash Allison MD at 14:31 EST Tel , Service support ,
== END ==
PROVIDERS: Family Provider Internal Medicine; PCP Internal Medicine; Referring Provider Orthopaedic Surgery; Visit Provider Orthopaedic Surgery
DX: S83.241A Other tear of medial meniscus, current injury, right knee, initial encounter (principal); S83.281A Other tear of lateral meniscus, current injury, right knee, initial encounter; S83.511A Sprain of anterior cruciate ligament of right knee, initial encounter
CPT/HCPCS: 73721

== ENCOUNTER → 2018-12-22 | Outpatient (CLI) | payer OTHER, SELFPAY ==
[2018-05-04 15:14] VITALS: BMI 21.4
[2018-12-20 11:30] VITALS: BMI 21.4
--- NOTE | 2018-12-22 11:56 | BI_ITS ---
MAMMOGRAPHY - BILATERAL SCREENING 3-D TOMOSYNTHESIS REASON FOR EXAM: Female, 43 years old. Bilateral Screening 3-D tomosynthesis PERTINENT HISTORY: Paternal aunt and first cousin with history of breast cancer. TECHNIQUE: 2-D mammograms and 3-D Tomosynthesis of the breast (s) were performed. CAD was performed. COMPARISON: 11/17/2017 FINDINGS: The breast composition is heterogeneously dense that can obscure small breast masses. Scattered benign calcifications are seen. No dense spiculated masses or suspicious microcalcifications are identified. No architectural distortion is identified. There is no skin thickening or retraction. There has been no significant change since the prior study. BI/SCREEN MAMM (CAD) W/JAMILA BILAT IMPRESSION: No mammographic signs of malignancy. Routine yearly mammograms recommended. ASSESSMENT CATEGORY: BIRADS Category 2: Benign. A letter regarding these results will be sent to the patient by the facility within 30 days. FOLLOW UP RECOMMENDATION: Yearly follow up mammogram recommended. (A) Approximately 10% of breast cancers are not detected by mammography. A normal mammogram should not delay biopsy of a clinically suspicious abnormality. Electronically Signed: David Mai MD at 16:37 EDT Tel [phone], Service support ,
== END | disposition home or self-care (01) ==
LOC: OPBI 11:55
PROVIDERS: Family Provider Internal Medicine; PCP Internal Medicine; Referring Provider Obstetrics & Gynecology; Visit Provider Obstetrics & Gynecology
DX: Z12.31 Encounter for screening mammogram for malignant neoplasm of breast (principal)
CPT/HCPCS: 77063; 77067

== ENCOUNTER → 2019-03-06 09:55 | Outpatient (CLI) | payer OTHER, SELFPAY ==
[2019-03-06 09:44] VITALS: BMI 21.4
--- NOTE | 2019-03-06 09:56 | RAD_ITS ---
STUDY: X-RAY - CERVICAL SPINE REASON FOR EXAM: Female, 43 years old. Right shoulder and arm pain. TECHNIQUE: 5 view(s) of the cervical spine were obtained. COMPARISON: None FINDINGS: Normal anterior atlantoaxial articulation. Normal odontoid process. Normal cervical lordosis. Normal vertebral bodies and endplates. Minimal intervertebral disc space narrowing at C4-5, C5-6 and C6-7 with osteophyte formation most marked at C6-7. Anterior bony neural foraminal encroachment at C6-7 bilaterally. Diffuse uncovertebral and facet sclerosis. The soft tissue structures are unremarkable. RAD/Cerv Spine 4 or 5 Views IMPRESSION: The lower lumbar spondylosis, most marked at C6-7, as described above. Electronically Signed: Dc Martinez MD at 10:56 EST , Service support ,
--- NOTE | 2019-03-06 10:27 | RAD_ITS ---
STUDY: X-RAY - RIGHT SHOULDER REASON FOR EXAM: Female, 43 years old. Chronic shoulder pain. TECHNIQUE: 3 view(s) of the shoulder. COMPARISON: None. FINDINGS: Normal glenohumeral articulation. Mild arthrosis of the acromioclavicular joint. Normal acromion. Normal humeral head and visualized proximal humerus. The soft tissue structures are unremarkable. Normal visualized pulmonary apex. RAD/Shoulder min 2 Views IMPRESSION: Mild AC joint arthrosis. Electronically Signed: Dc Martinez MD at 11:19 EST , Service support ,
== END ==
PROVIDERS: Family Provider Internal Medicine; PCP Internal Medicine; Referring Provider Orthopaedic Surgery; Visit Provider Orthopaedic Surgery
DX: M25.511 Pain in right shoulder (principal); M79.601 Pain in right arm
CPT/HCPCS: 72050; 73030

== ENCOUNTER → 2019-03-21 15:14 | Outpatient (CLI) | payer OTHER, SELFPAY ==
[2019-03-06 09:44] VITALS: BMI 21.4
[2019-03-21 15:40] LABS: CPK Total, Creatine Kinase 63 U/L (26-192)
== END ==
PROVIDERS: Family Provider Internal Medicine; PCP Internal Medicine; Referring Provider Internal Medicine; Visit Provider Internal Medicine
DX: R07.9 Chest pain, unspecified (principal)
CPT/HCPCS: 82550; 84484

== ENCOUNTER 2019-04-04 10:00 | Outpatient (RCR) | payer OTHER, SELFPAY ==
[2019-03-06 09:44] VITALS: BMI 21.4
--- NOTE | 2019-03-08 08:41 | HP.PTEVAL_ITS ---
Patient's Visit Information KALYN GANT is a 43 year old F referred to Physical Therapy by Swapna Knox DO with a diagnosis of R Biceps Tendinitis. Date of Evaluation: 03/07/19 Physical Therapist: Radha Nguyễn DPT - Visit Plan Frequency: 1x/Week Duration: 4 Weeks Plan: Focus on scap strengtgh/stabilization, postural education. Progress HEP each visit. 03/07/19 HEP Prescribed: Scapular retractions, serratus presses, Bilater Ext. Rot. (GTB) - Subjective Findings: Shoulder pain for almost a year - starting march 2018, over time through a new workout program progressively got worse and worse. In 2018 was recieving therapy for knee & shoulder. Doesn;'t know if it helped, never went away completely. Hx of B knee injuries. Considering cortisone injectuion w/ doctor. x-rays for shoulder/neck - negative. Painful with any kind of rotation. Insidious onset of injury. Notices a lot sleeping on her R side & carrying her bag. Sharp pain in ant. shoulder, biceptial groove. Worst: 3-4/10 Aggravating Factors: laying on it, weight traning, push-ups, driving, washing her hair, putting jacket on. Best: 1/10 Eases: Ice. ibuprofen, rest. Rufino N/T, just a weak sensation down the arm. Radiating pain down to elbow. 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 Pets 1 dog, 3 kids (11-16). Exercise: Fitness classes - strength/cardio training (light weights), elliptical, walk/run, weight training videos (light DB) - working out 4x/week (work w/ DB's most days). 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 - Objective Posture: RS, FH - corrected w/ v/c but unable to maintain. Gait: no deviations noted - good arm swing/trunk rot. ROM: Wrist/Elbow WFL Shoulder WFL (pain at end-range flexion/abduction/ER). Strength: Service Coordinator [facility] 60#, 60#, 60# B Elbow: 5/5 Shoulder 4/5 (pain w/ all shoulder testing0. Finger Dexterity: WNL. Palpation: TTP at supraspinatus, slight tenderness at bicepital groove. Special Tests: Impingement (+), Full Can/Empty Can (+), Yergasons (+), Instability (+) - Goals Goal 1:: Pt. will be I w/ HEP & progression Goal Time Frame: 4-6 Weeks Goal 2:: Pt. will demo 5/5 strnegth in R UE Goal Time Frame: 4-6 Weeks Goal 3:: Pt. will maintain proper posture t/o tx session to demo improve scap strength. Goal Time Frame: 4-6 Weeks - Rehabilitation Potential Physical Therapy Diagnosis: Presents w/ poor posture, impaired UE/scap strength, and pain which leads to difficulty performing ADLs. Rehabilitation Potential: Good - Anticipated Interventions Patient/Client Instruction: Educate patient on: Condition For the Purpose of:: To decrease pain Therapeutic Exercise to Include: Strength training, Endurance training, Body mechanics, Postural training, Active ROM, Scapular Strength/Stabilization For the Purpose of:: To improve muscle performance and motor function For the Purpose of:: To improve muscle performance and motor function Thank you for the opportunity to evaluate your patient. For Medicare and Medicare HMO plans, please review the plan of care and approve it. It will need to be FAXED BACK to us at [phone] for Medicare purposes. For Medicare only, by signing this I certify the plan of care. Please let me know if there are questions or concerns regarding this plan of care. Physician Signature:___ Date:
--- NOTE | 2019-04-04 10:25 | HP.PTDCSUM ---
HP - PT D/C Summary It has been my pleasure to treat KALYN GANT under orders from Swapna Knox DO, for the diagnosis of R Biceps Tendinitis for a total of 5 visit(s). Discharge Date: Please see the following information for a summary of their discharge status. - Subjective Subjective: Patient reports that the shoulder is marginally better. After the first 2 weeks improvement in the normal day to day. Notices it more with like sports stuff and working out. Activity modification is helping. Has not had an injection- did 4 weeks of PT then return. - Pain R bicep Pain Intensity (Out of 10): 2 - Overall Improvement % Improvement: 75 - Objective Objective/Function: Posture: good. Gait: no deviations noted - good arm swing/trunk rot. ROM: Wrist/Elbow WFL Shoulder WFL (pain at end-range IR). Strength: Elbow: 5/5 Shoulder 4+/5 Palpation: TTP bicepital groove. Special Tests: Impingement (+), Full Can/Empty Can (+), Yergasons (+), Instability (+) - Goals Goal 1:: Pt. will be I w/ HEP & progression Goal Progress: Goal Met Goal 2:: Pt. will demo 5/5 strnegth in R UE Goal Progress: Progressing Goal 3:: Pt. will maintain proper posture t/o tx session to demo improve scap strength. Goal Progress: Progressing - Plan Plan: Discharge- return to MD for further evaluation - D/C Information If there are questions or concerns regarding this patient's physical therapy, please feel free to call me at [phone]. Thank you for the referral of this patient. Sincerely, OSCAR NewmanT
== END 2019-04-04 19:00 | disposition home or self-care (01) ==
LOC: PT 10:00
PROVIDERS: Family Provider Internal Medicine; PCP Internal Medicine; Referring Provider Orthopaedic Surgery; Visit Provider Orthopaedic Surgery
DX: M75.21 Bicipital tendinitis, right shoulder (principal)
CPT/HCPCS: 97110; 97161; 97164

== ENCOUNTER → 2019-04-23 10:53 | Outpatient (CLI) | payer OTHER, SELFPAY ==
[2019-03-06 09:44] VITALS: BMI 21.4
--- NOTE | 2019-04-23 10:54 | ECHOD_ITS ---
Reason For Study: Chest Pain Procedure This was a 2D Doppler, Color Flow transthoracic echocardiogram. Exam performed in department. Left Ventricle Normal LV size. Left ventricular systolic function is normal. The estimated ejection fraction is 60 %. Normal diastology for age. No regional wall motion abnormalities noted. Right Ventricle Normal RV size. Normal systolic function. Atria Normal left atrium. Normal right atrium. Bubble contrast study negative for right to left interatrial shunt. Mitral Valve Normal mitral valve. Mild (1+) mitral valve insufficiency. Tricuspid Valve Normal tricuspid valve. Mild tricuspid valve insufficiency. Aortic Valve Normal aortic valve. Trisinus/trileaflet aortic valve. Trivial aortic valve insufficiency. Pulmonic Valve Normal pulmonic valve. Great Vessels Normal aortic root. The pulmonary artery is normal size. Normal inferior vena cava. Pericardium/Pleural No pericardial effusion. Medication Performed a rapid injection of agitated mix of 9 cc saline and 1cc air to assess for atrial septal defect. MMode/2D Measurements & Calculations LVIDd: 4.7 cm IVSd: 0.81 cm Ao root diam: 2.5 cm LVIDs: 3.3 cm LVPWd: 0.83 cm RVDd: 2.7 cm FS: 29.1 % LAV(MOD-bp): 34.4 ml LVAd ap4: 27.0 cm2 SV(MOD-sp4): 51.2 ml LAV(MOD-bp) Indexed: 19.8 ml/m2 EDV(MOD-sp4): 77.6 ml LAV(MOD-sp2): 36.1 ml EDV(sp4-el): 81.0 ml LAV(MOD-sp4): 26.7 ml LVAs ap4: 14.2 cm2 ESV(MOD-sp4): 26.4 ml ESV(sp4-el): 27.3 ml EF(MOD-sp4): 65.9 % EF(sp4-el): 66.3 % SV(sp4-el): 53.7 ml LA A4 area: 11.7 cm2 LA dimension(2D): 3.2 cm RA A4 area: 11.4 cm2 Doppler Measurements & Calculations MV E max sherwin: 102.7 cm/sec Lat Peak E' Sherwin: 11.9 cm/sec Med Peak E' Sherwin: 7.4 cm/sec MV A max sherwin: 60.0 cm/sec E/E' lat: 8.6 E/E' med: 13.8 MV E/A: 1.7 Ao V2 max: 149.5 cm/sec LV V1 max: 130.6 cm/sec PA V2 max: 107.4 cm/sec Ao max P.9 mmHg LV V1 max P.8 mmHg Ao V2 mean: 98.5 cm/sec Ao mean P.4 mmHg Ao V2 VTI: 32.2 cm TR max sherwin: 219.5 cm/sec TR max P.3 mmHg Interpretation Summary Normal LV size. Left ventricular systolic function is normal. The estimated ejection fraction is 60 %. Normal diastology for age. Mild tricuspid valve insufficiency. Ordering Physician: Shayna Up Referring Physician: Shayna Up Performed By: Tiffanie Arce, CLIFTON, RVT
== END ==
PROVIDERS: Family Provider Internal Medicine; PCP Internal Medicine; Referring Provider Internal Medicine; Visit Provider Internal Medicine
DX: R07.9 Chest pain, unspecified (principal)
CPT/HCPCS: 93306; A4216

== ENCOUNTER → 2019-07-04 10:48 | Outpatient (CLI) | payer OTHER, SELFPAY ==
[2019-03-06 09:44] VITALS: BMI 21.4
--- NOTE | 2019-07-04 10:53 | STEWCON_ITS ---
Reason For Study: CHEST PAIN Stress Results Protocol: Rikki Protocol WITH DEFINITY Maximum Predicted HR: 176 bpm Target HR: 150 bpm % Maximum Predicted HR: 100 % DurationHeart Rate Stage (mm:ss) (bpm) BP Comment BASELINE 61 128/80 STAGE 1 3:00 101 140/84 STAGE 2 3:00 121 152/84 STAGE 3 3:00 151 170/80 STAGE 4 3:00 176 168/704 CC DEFINITY FOR TEST RECOVERY 94 130/88 Stress Duration: 12:00 mm:ss Maximum Stress HR: 176 bpm Baseline Echocardiogram Findings The estimated ejection fraction is 65 %. Stress Echo Wall motion Data Resting WM Intermediate WM Stress WM Resting Wall Motion Wall Motion Stress No regional wall motion No regional wall motion abnormalities noted. abnormalities noted. EKG Data The baseline ECG displays normal sinus rhythm. The patient exercised according to the regular Rikki protocol for a total duration of 12:00. The maximum heart rate attained was 176 beats per minute. The patient exercised into stage 5 of the Rikki protocol. No clinical angina was noted. No arrhythmias noted. At peak exercise, upsloping ST changes only were noted, which did not meet the criteria for ischemia. Interpretation Summary The estimated ejection fraction is 65 %. Normal, adequate, treadmill echocardiogram. Negative for ischemia by EKG and echocardiographic criteria. Rare PVC noted. Appropriate blood pressure response to exercise. Above average exercise capacity for age. Patient tolerate procedure well. Test terminated due to the attainment target heart rate. Decrease sensitivity due to poor echo windows requiring Definity agent. Patient tolerated procedure well. No complications. The study was technically difficult. Contrast injection was performed. Ordering Physician: Shayna Up Referring Physician: Shayna Up Performed By: Tiffanie Arce, RDPENNY, RVT
== END ==
PROVIDERS: PCP Internal Medicine; Referring Provider Internal Medicine; Visit Provider Internal Medicine
DX: R07.9 Chest pain, unspecified (principal)
CPT/HCPCS: 93017; 93350; Q9957; A4216; C8928

== ENCOUNTER → 2019-07-09 09:55 | Outpatient (CLI) | payer OTHER, SELFPAY ==
[2019-03-06 09:44] VITALS: BMI 21.4
--- NOTE | 2019-07-09 10:02 | US_ITS ---
STUDY: ABDOMINAL ULTRASOUND - RIGHT UPPER QUADRANT REASON FOR VISIT: Female, 43 years old EPIGASTRIC PAIN TECHNIQUE: Ultrasound evaluation of the right upper quadrant was performed with real-time and static finch-scale imaging. TECHNICAL QUALITY: Adequate. COMPARISON: None. FINDINGS: Liver: The liver measures 16.5 cm. There is normal echogenicity of the liver. The bile ducts are within normal limits. There is hepatic color flow. The direction of portal flow is hepatopetal. There is no demonstrated mass lesion. Gallbladder: Normal distended gallbladder. The gallbladder wall measures 3.0 mm. There is a negative sonographic Johnson''s sign. There is no pericholecystic fluid. There are no gallstones. Common Bile Duct (C.B.D.): The common bile duct measures 5.0 mm. Pancreas: Normal size of the head, body and tail of the pancreas. There is normal echogenicity of the pancreas. There is no demonstrated pancreatic mass or cyst. Right Kidney: Normal size of the right kidney. The right kidney measures 13.2 cm x 5.7 cm x 5.6 cm. Normal renal cortex. The right cortex measures 1.7 cm. There is no demonstrated renal mass or cyst. There is no right hydronephrosis. US/Gallbladder IMPRESSION: Normal right upper quadrant ultrasound examination. Electronically Signed: Suraj Gold, at 15:21 EDT , Service support ,
== END ==
PROVIDERS: PCP Internal Medicine; Referring Provider Internal Medicine; Visit Provider Internal Medicine
DX: R10.13 Epigastric pain (principal)
CPT/HCPCS: 76705

== ENCOUNTER → 2019-11-22 10:52 | Outpatient (CLI) | payer OTHER, SELFPAY ==
[2019-03-06 09:44] VITALS: BMI 21.4
== END ==
PROVIDERS: PCP Internal Medicine; Referring Provider Internal Medicine; Visit Provider Internal Medicine
DX: I47.1 Supraventricular tachycardia (principal)
CPT/HCPCS: 93225; 93226

== ENCOUNTER → 2019-12-24 13:33 | Outpatient (CLI) | payer SELFPAY ==
[2019-12-13 12:56] VITALS: BMI 22.7
--- NOTE | 2019-12-24 13:47 | CT_ITS ---
STUDY: CARDIAC CALCIUM SCORING - CT CHEST- ADDENDUM REASON FOR EXAM: Assess pulmonary parenchyma and mediastinal structures. RADIATION DOSAGE (If Supplied By Facility): CTDIvol = ( 12.19 ) mGy, DLP = ( 268.17 ) mGycm Individualized dose optimization techniques were used for this CT. ? TECHNIQUE: Axial non-enhanced images were acquired through the heart for the sole purpose of measuring coronary artery calcium. A field of view limited from the base of the heart to the upper abdomen was reviewed to assess the lung parenchyma and soft tissues. COMPARISON: CTA of the chest dated December 07, 2013. FINDINGS: The parenchymal windows with limited field of view show no signs of an acute infiltrate or pulmonary mass. There are no effusions. The visualized segments of the primary bronchi are clear. The mediastinal windows with limited [id number] show no signs of hilar or mediastinal adenopathy. There is no discrete chest wall mass. The visualized segments of the upper abdominal viscera are unremarkable. CT/Limited Chest CT w/CCTA IMPRESSION: No acute process or pulmonary mass. Electronically Signed: Markus Styles MD at 16:16 EDT , Service support ,
[2019-12-24 13:48] VITALS: BP 140/59; PULSE 68; RESP 14; O2SAT 100; BMI 22.7
--- NOTE | 2019-12-24 15:03 | CA.SCORE ---
Calcium Scoring Date of Study:: 12/24/19 Coronary Calcium Scoring: High-resolution Computed Tomographic imaging of the chest was performed on [12/24/2019], with particular attention paid to the coronary arteries. Images from the examination were analyzed for the presence and extent of coronary artery calcification , using coronary calcium quantification software. The patient tolerated the procedure well and there were no complications. The results of the coronary calcification analysis are provided below. - Findings Left Main (LM): 0 Left Anterior Descending (LAD): 0 Left Circumflex (LCX): 1.5 Right Coronary Artery (RCA): 0 Total Agatston Score: 1.5 Percentile Rankin-75 Calcium Scoring Interpretation: 0 No identifiable atherosclerotic plaque. Very low cardiovascular disease risk. <5% chance of presence coronary artery disease A Negative Examination 1-10 Minimal Plaque burden. Significant coronary artery disease very unlikely. 11-100 Mild plaque burden. Likely mild or minimal coronary atherosclerosis. 101-400 Moderate plaque burden Moderate non-obstructive coronary artery disease highly likely. Over 400 Extensive plaque burden. High likelihood of at least one significant coronary stenosis (>50% diameter) Calcium Score: 1 -10 Significant coronary artery disease very unlikely - Total Agatston score of 1.5 which is minimal suggesting that coronary artery disease is very unlikely. A full cardiac risk should include assessment of all conventional risk factors and the scores and percentile rankings noted should be evaluated in that context.
== END ==
PROVIDERS: PCP Internal Medicine; Referring Provider Internal Medicine Cardiovascular Disease; Visit Provider Internal Medicine Cardiovascular Disease
DX: R00.2 Palpitations (principal)
CPT/HCPCS: 75571; 76380

== ENCOUNTER → 2020-01-09 11:10 | Outpatient (CLI) | payer OTHER, SELFPAY ==
[2019-12-24 13:48] VITALS: BMI 22.7
[2020-01-03 11:25] VITALS: BMI 22.7
--- NOTE | 2020-01-09 11:30 | MRI_ITS ---
STUDY: MRI BRAIN WITH AND WITHOUT CONTRAST REASON FOR EXAM: Female, 44 years old. change in vision, demylenating disease -- blurred vision, herrera, tingling/pain head and extremities, random back and neck pain TECHNIQUE: Standardized multiplanar fat and water weighted pulse sequences were obtained. IV dotarem 13ml was administered for the contrast portion of the examination. COMPARISON: None. FINDINGS: Normal size of the ventricles and extra-axial spaces for the patient''s age. Normal white matter tracts of the supratentorial brain. There is no evidence for recent intracranial ischemia or other cause of cytotoxic edema on diffusion weighted imaging (DWI). Normal T2* images of the brain without demonstrated susceptibility artifact. There is no demonstrated hemosiderin stain. Normal bilateral basal ganglia. Normal thalami. There is no extra-axial fluid accumulation. Normal flow voids within the major intracranial circulation suggesting patency by spin echo criteria. Normal venous enhancement. There is no enhancing intra-axial or extra-axial abnormality. Normal sella turcica, pituitary gland, infundibular stalk, optic chiasm and hypothalamus. Normal tectal plate and pineal gland. Normal midbrain, da and medulla. Normal cerebellum. Normal basal cisterns. Normal bilateral temporal bones. Normal bilateral internal auditory canals. No demonstrated orbital abnormality, within the constraints of a routine brain study. Normal visualized paranasal sinuses. Normal calvarium and skull base. Normal visualized soft tissue structures. Normal visualized upper cervical spine. MRI/Brain W/WO Contrast IMPRESSION: Normal unenhanced and enhanced MRI of the brain. Electronically Signed: Johnie Rodríguez MD at 12:45 EDT Tel , Service support ,
[2020-01-09 13:25] LABS: Hematocrit 40.1 % (37-47); Hemoglobin 13.8 g/dL (12.0-15.0); Mean Corp Hgb Conc 34.4 g/dL (32-36); Mean Corpuscular Hgb 32.8 pg (27.0-32.0); Mean Corpuscular Volume 95.2 fL (81-99); Mean Platelet Vol. 10.8 fl (6.2-12.0); Platelet Count 257 K/mm3 (150-450); RBC Distribution Width CV 12.3 % (11.6-14.6); RBC Distribution Width SD 42.9 fl (35.1-43.9); Red Blood Count 4.21 M/mm3 (4.2-5.4); White Blood Count 5.9 K/mm3 (4.4-11.0)
[2020-01-09 14:04] LABS: Anion Gap 3 (5-15); BUN 10 mg/dL (7-18); BUN/Creat Ratio 17.2 RATIO (10-20); Calcium,Total 8.9 mg/dL (8.5-10.1); Chloride 106 mmol/L (98-107); Creatinine, Serum 0.58 mg/dL (0.55-1.02); EST Glomerular Filtration Rate 119 mL/min (>60); Est Glom Filt Rate - Afr Amer 144 mL/min (>60); Glucose 85 mg/dL (74-106); Magnesium 2.3 mg/dL (1.6-2.6); Potassium 3.5 mmol/L (3.5-5.1); Sodium Level 138 mmol/L (136-145); T4 Total, Thyroxin 8.7 ug/dL (4.8-13.9); Thyroid Stim Hormone (TSH) 0.59 uIU/mL (0.358-3.74)
== END ==
PROVIDERS: Internal Medicine Cardiovascular Disease; PCP Internal Medicine; Referring Provider Internal Medicine; Visit Provider Internal Medicine
DX: H53.9 Unspecified visual disturbance (principal); R00.2 Palpitations; R00.0 Tachycardia, unspecified; Z86.79 Personal history of other diseases of the circulatory system
CPT/HCPCS: 36415; 70553; 80048; 83735; 84436; 84443; 85027; A9575

== ENCOUNTER → 2020-01-25 13:57 | Outpatient (CLI) | payer OTHER, SELFPAY ==
[2019-03-06 09:44] VITALS: BMI 21.4
[2020-01-17 13:19] VITALS: BMI 22.7
--- NOTE | 2020-01-25 14:21 | BI_ITS ---
MAMMOGRAPHY - BILATERAL SCREENING REASON FOR EXAM: Female, 44 years old. Routine annual screening examination. PERTINENT HISTORY: Aunt with breast cancer. TECHNIQUE: Digital bilateral breast jamila (3D mammographic acquisition) in the CC and MLO projections. 2-D mediolateral oblique (MLO) and craniocaudad (CC) views of both breasts were obtained. CAD: Full Field Digital Mammography with Computer Added Detection was performed. COMPARISON: Comparison is made with prior study dated 12/22/2018 and 11/06/20182017. FINDINGS: Breast Composition: The breasts are extremely dense, which lowers the sensitivity of mammography. There are no dominant masses or suspicious calcifications. No other significant abnormalities are identified. There has been no significant change since the prior study. BI/SCREEN MAMM (CAD) W/JAMILA BILAT IMPRESSION: Stable bilateral screening mammogram. Yearly follow-up mammogram recommended. (A) ASSESSMENT CATEGORY: BIRADS Category 1: Negative. A letter regarding these results will be sent to the patient by the facility within 30 days. Approximately 10% of breast cancers are not detected by mammography. A normal mammogram should not delay biopsy of a clinically suspicious abnormality. [id number] Electronically Signed: Suraj Gold, at 15:20 EDT , Service support ,
== END ==
PROVIDERS: PCP Internal Medicine; Referring Provider Obstetrics & Gynecology; Visit Provider Obstetrics & Gynecology
DX: Z12.31 Encounter for screening mammogram for malignant neoplasm of breast (principal)
CPT/HCPCS: 77063; 77067

== ENCOUNTER → 2020-02-11 14:57 | Outpatient (CLI) | payer OTHER, SELFPAY ==
[2020-01-17 13:19] VITALS: BMI 22.7
[2020-02-11 18:58] LABS: CRP, High Sensitivity Cardiac 0.16 mg/L
== END ==
PROVIDERS: PCP Internal Medicine; Visit Provider Internal Medicine Cardiovascular Disease
DX: R00.2 Palpitations (principal)
CPT/HCPCS: 36415; 86141

== ENCOUNTER → 2020-02-26 12:55 | Outpatient (CLI) | payer OTHER, SELFPAY ==
[2020-01-17 13:19] VITALS: BMI 22.7
[2020-02-14 09:47] VITALS: BMI 22.7
--- NOTE | 2020-02-26 12:56 | ECHOD_ITS ---
Reason For Study: ARRHYTHMIA Procedure This was a 2D Doppler, Color Flow transthoracic echocardiogram. Exam performed in department. Left Ventricle Normal LV size. Left ventricular systolic function is normal. The estimated ejection fraction is 60 %. Normal diastology for age. No regional wall motion abnormalities noted. Right Ventricle Normal RV size. Normal systolic function. Atria Normal left atrium. Normal right atrium. Mitral Valve Normal mitral valve. Trivial eccentric mitral valve insufficiency. Tricuspid Valve Normal tricuspid valve. Mild tricuspid valve insufficiency. Pulmonary artery systolic pressure is 24 mmHg. Aortic Valve Normal aortic valve. Trisinus/trileaflet aortic valve. Pulmonic Valve Normal pulmonic valve. Great Vessels Normal aortic root. The pulmonary artery is normal size. Normal inferior vena cava. Pericardium/Pleural No pericardial effusion. MMode/2D Measurements & Calculations LVIDd: 4.7 cm IVSd: 0.70 cm Ao root diam: 2.8 cm LVIDs: 3.1 cm LVPWd: 0.80 cm RVDd: 2.7 cm FS: 34.2 % LAV(MOD-bp): 36.5 ml LA A4 area: 10.3 cm2 LA dimension(2D): 3.4 cm LAV(MOD-bp) Indexed: 20.9 ml/m2 LAV(MOD-sp2): 43.0 ml LAV(MOD-sp4): 22.1 ml RA A4 area: 11.9 cm2 Time Measurements MV dec time: 0.22 sec Doppler Measurements & Calculations MV E max sherwin: 114.4 cm/sec Lat Peak E' Sherwin: 10.6 cm/sec Med Peak E' Sherwin: 8.8 cm/sec MV A max sherwin: 55.2 cm/sec E/E' lat: 10.7 E/E' med: 13.0 MV E/A: 2.1 Ao V2 max: 145.6 cm/sec LV V1 max: 123.7 cm/sec PA V2 max: 91.3 cm/sec Ao max P.5 mmHg LV V1 max P.1 mmHg TR max sherwin: 233.8 cm/sec TR max P.9 mmHg Interpretation Summary Normal LV size. Left ventricular systolic function is normal. The estimated ejection fraction is 60 %. Pulmonary artery systolic pressure is 24 mmHg. Normal diastology for age. Trivial eccentric mitral valve insufficiency. Ordering Physician: Ilia Thomas Referring Physician: RYLIE SIFUENTES Performed By: Joslyn Bro, CLIFTON, RVT
== END ==
PROVIDERS: PCP Internal Medicine; Referring Provider Internal Medicine Cardiovascular Disease; Visit Provider Internal Medicine Cardiovascular Disease
DX: R00.2 Palpitations (principal)
CPT/HCPCS: 93306

== ENCOUNTER → 2020-08-22 11:56 | Outpatient (CLI) | payer OTHER, SELFPAY ==
[2020-03-04 10:03] VITALS: BMI 22.9
[2020-08-14 09:06] VITALS: BMI 23.1
== END ==
PROVIDERS: PCP Student in an Organized Health Care Education/Training Program; Referring Provider Student in an Organized Health Care Education/Training Program; Visit Provider Student in an Organized Health Care Education/Training Program
DX: U07.1 COVID-19 (principal)
CPT/HCPCS: 36415; 86769

== ENCOUNTER → 2021-01-12 14:52 | Outpatient (CLI) | payer OTHER, SELFPAY | PROVIDERS: PCP Student in an Organized Health Care Education/Training Program; Referring Provider Student in an Organized Health Care Education/Training Program; Visit Provider Student in an Organized Health Care Education/Training Program | DX: U07.1 COVID-19 (principal) | CPT/HCPCS: 36415; 86769 ==

== ENCOUNTER → 2021-01-27 12:35 | Outpatient (CLI) | payer OTHER, SELFPAY ==
[2020-08-14 09:06] VITALS: BMI 23.1
--- NOTE | 2021-01-27 12:37 | BI_ITS ---
MAMMOGRAPHY - BILATERAL SCREENING REASON FOR EXAM: Female, 45 years old. Routine annual screening examination. PERTINENT HISTORY: Aunt with breast cancer. TECHNIQUE: Digital bilateral breast jamila (3D mammographic acquisition) in the CC and MLO projections. 2-D mediolateral oblique (MLO) and craniocaudad (CC) views of both breasts were obtained. CAD: Full Field Digital Mammography with Computer Added Detection was performed. COMPARISON: Comparison is made with prior study of 01/25/2020 and 12/22/2018. FINDINGS: Breast Composition: The breasts are extremely dense, which lowers the sensitivity of mammography. There are no dominant masses or suspicious calcifications. No other significant abnormalities are identified. There has been no significant change since the prior study. BI/SCRN MAMM (CAD)W/JAMILA BILAT IMPRESSION: Stable bilateral screening mammogram. Yearly follow-up mammogram recommended. (A) ASSESSMENT CATEGORY: BIRADS Category 1: Negative. A letter regarding these results will be sent to the patient by the facility within 30 days. Approximately 10% of breast cancers are not detected by mammography. A normal mammogram should not delay biopsy of a clinically suspicious abnormality. [id number] Electronically Signed: Suraj Gold MD at 13:45 EDT , Service support ,
== END ==
PROVIDERS: PCP Student in an Organized Health Care Education/Training Program; Referring Provider Obstetrics & Gynecology; Visit Provider Obstetrics & Gynecology
DX: Z12.31 Encounter for screening mammogram for malignant neoplasm of breast (principal)
CPT/HCPCS: 77063; 77067

== ENCOUNTER → 2021-02-12 11:03 | Outpatient (CLI) | payer OTHER, SELFPAY ==
--- NOTE | 2021-02-12 11:06 | US_ITS ---
STUDY: ULTRASOUND BREAST - LEFT REASON FOR EXAM: Female, 45 years old. Palpable lump left breast. TECHNIQUE: Axial and longitudinal images of the LEFT breast were performed with a high resolution ultrasound transducer. # OF IMAGES: 36 COMPARISON: Comparison is made with prior mammogram dated 01/27/2021. FINDINGS: LEFT Breast: The upper half of the left breast was examined by ultrasound. Dense fibroglandular tissue is seen. No sonographic abnormality is present. US/Breast Limited Unilateral IMPRESSION: No sonographic abnormality is present. ASSESSMENT CATEGORY: BIRADS Category 1: Negative. A letter regarding these results will be sent to the patient by the facility within 30 days. Electronically Signed: Suraj Gold MD at 13:05 EDT , Service support ,
== END ==
PROVIDERS: PCP Student in an Organized Health Care Education/Training Program; Referring Provider Obstetrics & Gynecology; Visit Provider Obstetrics & Gynecology
DX: R92.2 Inconclusive mammogram (principal)
CPT/HCPCS: 76642

== ENCOUNTER → 2022-02-02 | Outpatient (CLI) | payer OTHER, SELFPAY ==
--- NOTE | 2022-02-02 12:14 | BI_ITS ---
MAMMOGRAPHY - BILATERAL SCREENING REASON FOR EXAM: Female, 46 years old. Routine annual screening examination. PERTINENT HISTORY: Aunt with breast cancer. TECHNIQUE: Digital bilateral breast jamila (3D mammographic acquisition) in the CC and MLO projections. 2-D mediolateral oblique (MLO) and craniocaudad (CC) views of both breasts were obtained. CAD: Full Field Digital Mammography with Computer Added Detection was performed. COMPARISON: Comparison is made with prior study 01/27/2021 and 01/25/2020. FINDINGS: Breast Composition: The breasts are extremely dense, which lowers the sensitivity of mammography. There are no dominant masses or suspicious calcifications. No other significant abnormalities are identified. There has been no significant change since the prior study. BI/SCRN MAMM (CAD)W/JAMILA BILAT IMPRESSION: Stable bilateral screening mammogram. Yearly follow-up mammogram recommended. (A) ASSESSMENT CATEGORY: BIRADS Category 1: Negative. A letter regarding these results will be sent to the patient by the facility within 30 days. Approximately 10% of breast cancers are not detected by mammography. A normal mammogram should not delay biopsy of a clinically suspicious abnormality. [id number] Electronically Signed: Suraj Gold MD at 13:23 EDT ,
== END | disposition home or self-care (01) ==
PROVIDERS: PCP Student in an Organized Health Care Education/Training Program; Visit Provider Obstetrics & Gynecology
DX: Z12.31 Encounter for screening mammogram for malignant neoplasm of breast (principal); Z80.3 Family history of malignant neoplasm of breast
CPT/HCPCS: 77063; 77067

== ENCOUNTER → 2022-02-15 | Outpatient (CLI) | payer OTHER, SELFPAY ==
[2022-02-22 16:52] LABS: HPV APTIMA, High Risk Negative (Negative)
== END | disposition home or self-care (01) ==
PROVIDERS: PCP Student in an Organized Health Care Education/Training Program; Visit Provider Obstetrics & Gynecology
DX: Z12.4 Encounter for screening for malignant neoplasm of cervix (principal)
CPT/HCPCS: 87624; 88175; G0145

== ENCOUNTER → 2023-02-24 | Outpatient (CLI) | payer OTHER, SELFPAY ==
--- NOTE | 2023-02-24 07:41 | BI_ITS ---
MAMMOGRAPHY - BILATERAL SCREENING REASON FOR EXAM: Female, 47 years old. Routine annual screening examination. PERTINENT HISTORY: Aunt with breast cancer. TECHNIQUE: Digital bilateral breast jamila (3D mammographic acquisition) in the CC and MLO projections. 2-D mediolateral oblique (MLO) and craniocaudad (CC) views of both breasts were obtained. CAD: Full Field Digital Mammography with Computer Added Detection was performed. COMPARISON: Comparison is made with prior examination February 02, 2022 and January 27, 2021. FINDINGS: Breast Composition: The breasts are extremely dense, which lowers the sensitivity of mammography. There are no dominant masses or suspicious calcifications. No other significant abnormalities are identified. There has been no significant change since the prior study. BI/SCRN MAMM (CAD)W/JAMILA BILAT IMPRESSION: Stable bilateral screening mammogram. Yearly follow-up mammogram recommended. (A) ASSESSMENT CATEGORY: BIRADS Category 1: Negative. A letter regarding these results will be sent to the patient by the facility within 30 days. Approximately 10% of breast cancers are not detected by mammography. A normal mammogram should not delay biopsy of a clinically suspicious abnormality. [id number] Electronically Signed: Suraj Gold MD at 8:34 EDT ,
== END | disposition home or self-care (01) ==
LOC: OPBI 07:40
PROVIDERS: PCP Student in an Organized Health Care Education/Training Program; Referring Provider Obstetrics & Gynecology; Visit Provider Obstetrics & Gynecology
DX: Z12.31 Encounter for screening mammogram for malignant neoplasm of breast (principal)
CPT/HCPCS: 77063; 77067

== ENCOUNTER → 2024-01-27 | Outpatient (CLI) | payer OTHER, SELFPAY ==
--- NOTE | 2024-01-27 07:19 | CT_ITS ---
STUDY: CT CHEST WITHOUT CONTRAST REASON FOR EXAM: Female, 48 years old. Encounter for screening for cardiovascular disorders RADIATION DOSAGE (If Supplied By Facility): CTDIvol = ( 12.19 ) mGy, DLP = ( 219.42 ) mGycm TECHNIQUE: Transaxial imaging was performed without the administration of intravenous contrast material. Individualized dose optimization techniques were used for this CT. COMPARISON: Comparison is made with prior study dated December 24, 2019. FINDINGS: CHEST The lungs are normal. There is no demonstrated pleural abnormality. No coronary artery calcification is seen. Normal mediastinum. Normal hilar regions. Normal unenhanced pulmonary arteries. Normal aorta arch and descending thoracic aorta. Normal osseous structures. There is no demonstrated abnormality of the visualized upper abdomen. CT/Limited Chest CT Cardiac Only IMPRESSION: Normal unenhanced CT chest. Electronically Signed: Suraj Gold MD at 12:09 EDT ,
--- NOTE | 2024-01-27 08:55 | CA.SCORE ---
Calcium Scoring Date of Study:: 01/27/24 Indications Indications: screening for CAD Coronary Calcium Scoring: High-resolution Computed Tomographic imaging of the chest was performed on [01/27/24 ], with particular attention paid to the coronary arteries. Images from the examination were analyzed for the presence and extent of coronary artery calcification , using coronary calcium quantification software. The patient tolerated the procedure well and there were no complications. The results of the coronary calcification analysis are provided below. Findings Coronary Artery Left Main (LM): 0 Left Anterior Descending (LAD): 0 Left Circumflex (LCX): 11.7 Right Coronary Artery (RCA): 0 Total Agatston Score: 11.7 Percentile Rankin-90% Calcium Scoring Interpretation: Different methods to categorize the overall amount of coronary plaque. Overall amount CAC SIS Visual of coronary plaque P1 Mild -100 <2 1-2 vessels with mild amount of plaque P2 Moderate 101-300 3-4 1-2 vessels with moderate amount, 3 vessels with mild amount of plaque P3 Severe 301-999 5-7 3 vessels with moderate amount, 1 vessel with severe amount of plaque P4 Extensive >1000 >8 2-3 vessels with severe amount of plaque Conclusion: Minimal atherosclerotic plaque in Lcx
== END | disposition home or self-care (01) ==
LOC: CT 07:18
PROVIDERS: PCP Student in an Organized Health Care Education/Training Program; Referring Provider Student in an Organized Health Care Education/Training Program; Visit Provider Student in an Organized Health Care Education/Training Program
DX: Z13.6 Encounter for screening for cardiovascular disorders (principal)
CPT/HCPCS: 75571; 76380

== ENCOUNTER → 2024-03-07 | Outpatient (CLI) | payer OTHER, SELFPAY ==
--- NOTE | 2024-03-07 07:40 | BI_ITS ---
MAMMOGRAPHY - BILATERAL SCREENING REASON FOR EXAM: Female, 48 years old. Routine annual screening examination. PERTINENT HISTORY: Aunt with breast cancer. TECHNIQUE: Digital bilateral breast jamila (3D mammographic acquisition) in the CC and MLO projections. 2-D mediolateral oblique (MLO) and craniocaudad (CC) views of both breasts were obtained. CAD: Full Field Digital Mammography with Computer Added Detection was performed. COMPARISON: Comparison is made with prior study dated February 24, 2023 and February 02, 2022. FINDINGS: Breast Composition: The breasts are extremely dense, which lowers the sensitivity of mammography. There are no dominant masses or suspicious calcifications. No other significant abnormalities are identified. There has been no significant change since the prior study. BI/SCRN MAMM (CAD)W/JAMILA BILAT IMPRESSION: Stable bilateral screening mammogram. Yearly follow-up mammogram recommended. (A) ASSESSMENT CATEGORY: BIRADS Category 1: Negative. A letter regarding these results will be sent to the patient by the facility within 30 days. Approximately 10% of breast cancers are not detected by mammography. A normal mammogram should not delay biopsy of a clinically suspicious abnormality. [id number] Electronically Signed: Suraj Gold MD at 10:16 EST ,
== END | disposition home or self-care (01) ==
LOC: OPBI 07:40
PROVIDERS: PCP Student in an Organized Health Care Education/Training Program; Referring Provider Obstetrics & Gynecology; Visit Provider Obstetrics & Gynecology
DX: Z12.31 Encounter for screening mammogram for malignant neoplasm of breast (principal)
CPT/HCPCS: 77063; 77067